=== PATIENT | male | born 1945 | race Caucasian/White ===

== ENCOUNTER 2018-02-19 07:01 | Outpatient (CLI) | payer OTHER ==
[2018-02-19] MEDS ORDERED: IOPAMIDOL-300 50 ML VIAL ONE (07:51)
[2018-02-19] MEDS ORDERED: IOPAMIDOL-300 100 ML VIAL ONE (07:51)
[2018-02-19] MEDS ORDERED: IOPAMIDOL-300 100 ML VIAL IVP ONE (09:09)
[2018-02-19] MEDS ORDERED: IOPAMIDOL-300 50 ML VIAL PO ONE (09:09)
--- NOTE | 2018-02-19 17:59 | CT Report ---
Reason: ABNORMAL XRAY FINDING ON PELVIS Procedure Date: 02/19/2018 Accession Number: [id number] / [id number] Procedure: CT - Abdomen/Pelvis W/ CPT Code: FULL RESULT: EXAM: CT ABDOMEN AND PELVIS EXAM DATE: 02/19/2018 09:06 AM. CLINICAL HISTORY: ABNORMAL XRAY FINDING ON PELVIS. COMPARISONS: The lumbar spine radiograph identified as the study leading to this examination is not available for comparison or review. TECHNIQUE: Routine helical CT imaging was performed through the abdomen and pelvis. IV contrast: 100 mL of Isovue-300. Enteric contrast: Yes. Reconstructions: Coronal and sagittal. In accordance with CT protocol optimization, one or more of the following dose reduction techniques were utilized for this exam: automated exposure control, adjustment of mA and/or KV based on patient size, or use of iterative reconstructive technique. FINDINGS: Lung Bases: Unremarkable. Liver: Normal. No masses. Gallbladder/Bile Ducts: Unremarkable. Spleen: Normal. Pancreas: Normal. Adrenal Glands: Fat-containing left adrenal nodule is consistent with an adrenal adenoma, benign. Mild nodular thickening of the right adrenal gland likely represents the same though no definitely measurable macroscopic fat is identified. Kidneys: There are bilateral renal hypodensities which are too small to characterize as well as left renal cysts. No masses or hydronephrosis. Peritoneal Cavity/Bowel: Diverticulosis, pancolonic without evidence of diverticulitis. No free fluid, free air or adenopathy. No masses or acute inflammatory process. Pelvic Organs: Normal. The bladder and visualized pelvic organs are within normal limits. Vasculature: No aneurysms or other significant abnormality. Bones: The right iliac vein contains a partially lytic partially expansile mass without definite cortical breakthrough. Other: Postsurgical changes and absence of prostate in the pelvis suggest the possibility of previous prostate cancer. IMPRESSION: Expansile mixed lytic and sclerotic right iliac wing lesion. Please correlate the right iliac lesion to the patient's possible history of prostate cancer and any potential previous history of osseous metastasis and their treatment. This would guide further imaging such as a bone scan or MRI and the need for biopsy. If further history and prior imaging could be made available to the radiologist, an addendum could be issued with a more targeted interpretation. [facility]
== END 2018-02-19 07:02 | disposition home or self-care (01) ==
LOC: DI 07:01
PROVIDERS: ATTEND Emergency Medicine Emergency Medical Services
DX: M89.9 Disorder of bone, unspecified (principal)
CPT/HCPCS: 74177; Q9967

== ENCOUNTER 2018-03-27 09:15 | Outpatient (CLI) | payer OTHER ==
[2018-03-27] MEDS ORDERED: GADOBUTROL 10 MMOL/10 ML VIAL ONE (10:26)
[2018-03-27] MEDS ORDERED: GADOBUTROL 10 MMOL/10 ML VIAL IVP ONE (10:59)
--- NOTE | 2018-03-29 13:31 | MRI Report ---
Reason: CT ABN ON LEFT HIP WING Procedure Date: 03/27/2018 Accession Number: [id number] / [id number] Procedure: MRI - Pelvis W/WO CPT Code: FULL RESULT: EXAM: MRI PELVIS WITHOUT AND WITH CONTRAST EXAM DATE: 03/27/2018 11:39 AM. CLINICAL HISTORY: CT ABN ON LEFT HIP WING. COMPARISON: ABDOMEN/PELVIS W/ 02/19/2018 8:56 AM. TECHNIQUE: Multiplanar, multisequence T1-weighted and fluid-sensitive sequences of the pelvis before and after administration of intravenous contrast. IV contrast: 10 mL of Gadavist. Other: None. FINDINGS: Bones: The right ilium is expanded, with thickening of the cortex and widening of the medullary cavity. There is mixed T1 and T2 signal visible throughout the right ilium particularly in the posterior process and iliac wing. The abnormality corresponds with that visible on the recent CT. There is a low T1, low T2 signal line through the right sacral ala parallel to the right sacroiliac joint. There is surrounding marrow edema. The findings may indicate an insufficiency or stress fracture. The differential diagnosis could include osteoarthritis. There is moderate degenerative change of the right sacroiliac joint. Lower Lumbar Spine: Mild degenerative change of the lower lumbar spine at L4-L5. Sacroiliac Joints: No effusion or sacroiliitis. Right Hip: Mild right hip osteoarthritis. Left Hip: Mild left hip osteoarthritis. Symphysis Pubis: Unremarkable. Musculature: No edema or fatty atrophy. Pelvic Cavity: Numerous colonic diverticula. The soft tissues of the abdomen and pelvis appear unremarkable. Other: The visualized sciatic nerves are unremarkable. No bursitis. The subcutaneous tissues are unremarkable. No abscess or cellulitis. IMPRESSION: 1. 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 2. Moderate degenerative change of the right sacroiliac joint. Possible stress or insufficiency fracture through the right sacral ala. Differential diagnosis includes degenerative change. 3. Mild bilateral hip osteoarthritis. [facility] MUSCULOSKELETAL RADIOLOGY SECTION
== END 2018-03-27 09:16 | disposition home or self-care (01) ==
LOC: DI 09:15
PROVIDERS: ATTEND Emergency Medicine Emergency Medical Services
DX: M16.0 Bilateral primary osteoarthritis of hip (principal); M47.818 Spondylosis without myelopathy or radiculopathy, sacral and sacrococcygeal region
CPT/HCPCS: 72197; A9585

== ENCOUNTER 2018-07-24 09:49 | Outpatient (CLI) | payer OTHER ==
[2018-07-24] MEDS ORDERED: IOVERSOL 320 100 ML VIAL IVP ONE ×2 (10:01→10:27)
--- NOTE | 2018-07-25 23:20 | CT Report ---
Reason: HEMOPTYSIS Procedure Date: 07/24/2018 Accession Number: [id number] / [id number] Procedure: CT - CHEST W CPT Code: FULL RESULT: EXAM: CT CHEST EXAM DATE: 07/24/2018 10:29 AM. CLINICAL HISTORY: Hemoptysis. COMPARISONS: ABDOMEN/PELVIS W/ 02/19/2018 8:56 AM. TECHNIQUE: Routine helical CT imaging was performed through the chest. IV contrast: None. Reconstructions: Coronal and sagittal. In accordance with CT protocol optimization, one or more of the following dose reduction techniques were utilized for this exam: automated exposure control, adjustment of mA and/or KV based on patient size, or use of iterative reconstructive technique. FINDINGS: Lungs and Pleura: There is subsegmental atelectasis noted within the left lung base region. No suspicious lung consolidation is noted. There is no significant airspace filling noted secondary to the reported hemoptysis. There is a small subpleural nodular density within the anterior portion of the right middle lobe, similar to the prior study (image 31 series 4). This measures 5.5 mm (image 31 series 4). Minimal linear right middle lobe as well as right lower lobe atelectatic changes are noted. Small pleural and parenchymal scarring noted within the left apex. Central Airways: Visualized central airways are without suspicious filling defects. Chest Wall: No significant abnormality. Thyroid: No significant abnormality. Mediastinum: No significant abnormality. Heart: Normal in size. No significant pericardial effusion. Aorta: Normal caliber. Upper Abdomen: As was seen on the prior CT of the abdomen, there is a nodule within the left adrenal measuring 1.5 x 1.8 x 2.2 cm (image 58 series 4). This contains macroscopic internal fat, most consistent with an adrenal myelolipoma. There is a small focal area of scarring within the upper portion of the left kidney (image 67 series 4). Contracted gallbladder. Possible internal gallstones and/or sludge, difficult to be certain on this exam. There are a couple of enlarged lymph nodes within the small bowel mesentery in the left upper quadrant, similar to the prior study. These are nonspecific. Bones: No suspicious bony lesions evident. Multiple old healed left-sided rib fractures are noted. There is moderate multilevel degenerative change within the spine. IMPRESSION: 1. No suspicious pulmonary consolidation. No suspicious pulmonary opacity related to clinically noted hemoptysis. 2. Indeterminate small nodular focus within the subpleural portion of the right middle lobe measuring 5.5 mm. This is indistinct in appearance. It may represent an area of scarring. Follow-up lung nodule as per the recommendation guidelines below. 3. Incidentally noted left adrenal myelolipoma measuring 1.5 x 1.8 x 2.2 cm. 4. Left hemidiaphragm eventration versus elevation again seen. 5. There are a couple of enlarged mesenteric lymph nodes within the left upper quadrant bowel mesentery, similar to the prior study. While this may represent a sequela of idiopathic mesenteritis, occasionally early lymphoma difficult to exclude with certainty. As such, follow-up examination recommended with a contrast-enhanced CT of the abdomen and pelvis at 6 months. Recommend follow-up of the described nodule(s) according to the following guidelines: Fleischner Society Recommendations 2017 MacMahon et al. Radiology 2017 Subsolid nodules: <6 mm (single, GG or part solid)- F/U CT at 3-6 months. If stable, consider CT at 2 and 4 years [facility]
== END 2018-07-24 09:50 | disposition home or self-care (01) ==
LOC: DI 09:49
PROVIDERS: ATTEND Emergency Medicine Emergency Medical Services
DX: R04.2 Hemoptysis (principal); R91.1 Solitary pulmonary nodule; D17.5 Benign lipomatous neoplasm of intra-abdominal organs; R59.0 Localized enlarged lymph nodes
CPT/HCPCS: 71260; Q9967

== ENCOUNTER 2018-10-30 09:16 | Outpatient (CLI) | payer OTHER ==
[2018-10-30] MEDS ORDERED: IOVERSOL 320 100 ML VIAL IVP ONE ×2 (09:44→10:44)
--- NOTE | 2018-10-30 16:30 | CT Report ---
Reason: SOLITARY PULMONARY NODULE Procedure Date: 10/30/2018 Accession Number: [id number] / [id number] Procedure: CT - CHEST W CPT Code: FULL RESULT: EXAM: CT CHEST EXAM DATE: 10/30/2018 10:43 AM. CLINICAL HISTORY: Solitary pulmonary nodule COMPARISONS: CHEST W/ 07/24/2018 10:20 AM RIBS W/PA CHEST LT 04/30/2018 8:16 PM ABDOMEN/PELVIS W/ 02/19/2018 8:56 AM. TECHNIQUE: Routine helical CT imaging was performed through the chest. IV contrast: 80 mL Optiray 320. Reconstructions: Coronal and sagittal. In accordance with CT protocol optimization, one or more of the following dose reduction techniques were utilized for this exam: automated exposure control, adjustment of mA and/or KV based on patient size, or use of iterative reconstructive technique. FINDINGS: Thyroid Gland: Normal as visualized. Lungs/Pleura: Heterogeneous parenchymal attenuation in the apices, suspect representing areas of air trapping due to small airways disease. The left hemidiaphragm is elevated, as before. Stable 6 mm subpleural nodule in the superior segment of the left lower lobe (4/22). Unchanged 15 x 8 mm oval-shaped nodular opacity along the oblique fissure, previously 14 x 8 mm, likely a fissural node. Two subtle subcentimeter areas of nodular subpleural opacity in the medial right middle lobe (4/31) and anterior right middle lobe (4/32) appear to represent linear scars on correlation with the sagittal images. No new pulmonary nodule. No focal infiltrate or pleural effusion. Mediastinum: Heart size is normal. No pericardial effusion. The aorta and visualized central pulmonary arteries are unremarkable. No adenopathy. Bones: Healing fractures deformities of the left lateral fourth and fifth and posterior fourth through seventh ribs. Lower thoracic spine DISH. No acute bony abnormality. Visualized Abdomen: Mild diffuse low attenuation of the hepatic parenchyma relative to the spleen, indicating steatosis. Colonic diverticulosis without focal wall thickening or adjacent mesenteric fat stranding to suggest acute diverticulitis. Bilateral low-attenuation adrenal nodules measuring 1.6 x 0.9 cm on the left (3/59) and 1.3 x 1.2 cm on the right (3/57) have not significantly changed in size or appearance compared to prior CT chest 07/24/[address] abdomen/pelvis 02/19/2018. The left nodule contains a small focus of macroscopic fat. 1.2 cm exophytic cyst arising from the medial upper pole of the left kidney (3/64). 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 Other: None. IMPRESSION: 1. Stable 6 mm subpleural nodule in the superior segment of the left lower lobe and probable fissural node along the oblique fissure. For 2017 [place] Society guidelines, recommend additional follow-up CT at 18-24 months to ensure stability. No new pulmonary nodule. 2. Previously described tiny subpleural opacities in the right middle lobe appear to represent scarring. 3. Unchanged small bilateral adrenal nodules, the left nodule containing a focus of macroscopic fat in keeping with a myelolipoma. Consider 12 month follow-up adrenal protocol in January 2019 per ACR white paper. [facility]
== END 2018-10-30 09:17 | disposition home or self-care (01) ==
LOC: LAB 09:16
PROVIDERS: ATTEND Emergency Medicine Emergency Medical Services
DX: R91.1 Solitary pulmonary nodule (principal); R91.8 Other nonspecific abnormal finding of lung field; E27.9 Disorder of adrenal gland, unspecified
CPT/HCPCS: 71260; 82565; Q9967

== ENCOUNTER 2019-08-23 08:00 | Outpatient (CLI) | payer OTHER | END 2019-08-23 23:59 | disposition home or self-care (01) | LOC: COV 08:00 | PROVIDERS: ATTEND Family Medicine | DX: R05 Cough (principal); R50.9 Fever, unspecified | CPT/HCPCS: 81599 ==

== ENCOUNTER 2020-01-27 06:22 | Day surgery (SDC) | payer OTHER ==
[2020-01-27] MEDS ORDERED: MIDAZOLAM 2 MG/2 ML VIAL IVP ONE (06:23)
[2020-01-27] MEDS ORDERED: PROPOFOL 200 MG/20 ML VIAL IVP ONE (06:23)
[2020-01-27] MEDS ORDERED: LACTATED RINGERS 1,000 ML IV ONE ×2 (07:05→09:07)
--- NOTE | 2020-01-27 07:30 | ANESTHESIA ---
Pre-Anesthesia VS, & Labs - Diagnosis polyps - Procedure colonoscopy Vital Signs: Temp Pulse Resp BP Pulse Ox 36.2 C L 82 18 141/91 H 96 01/27/20 06:34 01/27/20 06:34 01/27/20 06:34 01/27/20 06:34 01/27/20 06:34 Height 6 ft 1 in Weight (kg) 122.8 kg Body Mass Index 35.1 - NPO >8 hours - Lab Results Current Lab Results: Laboratory Tests 01/27/20 07:04: POC Whole Bld Glucose 144 H Home Medications and Allergies Amitriptyline HCl 04/30/18 Aspirin Chewable [[facility] [place] Aspirin] 04/30/18 Cholecalciferol (Vitamin D3) [Vitamin D3] 04/30/18 Cyclobenzaprine [Flexeril] 04/30/18 Gabapentin 04/30/18 Glipizide 04/30/18 Metformin HCl 04/30/18 Metoprolol Tartrate 04/30/18 Omeprazole 04/30/18 Psyllium Husk [Metamucil] 04/30/18 Simvastatin 04/30/18 amLODIPine [Norvasc] 04/30/18 cloNIDine [Catapres] 04/30/18 hydroCHLOROthiazide [Hydrochlorothiazide] 04/30/18 lisinopriL [Lisinopril] 04/30/18 Allergies/Adverse Reactions: Allergies Allergy/AdvReac Type Severity Reaction Status Date / Time morphine AdvReac Hallucinati Verified 04/30/18 19:34 ons tapes Allergy Rash Uncoded 01/27/20 07:19 Anes History & Medical History - Anesthetic History Anesthesia Complications: reports: No previous complications - Medical History Cardiovascular: reports: Hypertension, High cholesterol Pulmonary: reports: Other Gastrointestinal: reports: GERD, Colon polyps Urinary: reports: Benign prostate hypertrophy Musculoskeletal: reports: Osteoarthritis, Chronic back pain Endocrine/Autoimmune: reports: Type 2 diabetes, Other (obese) Skin: reports: None Smoking Status: Never smoker - Surgical History General: Colonoscopy Urologic: Prostatic surgery Orthopedic: Spine surgery, Other Exam General: Alert Dental: WNL Mouth Opening: Greater than 4 Fingerbreadths Neck Mobility: Normal Mallampati classification: II Thyromental Distance: greater than 6 cm Respiratory: Lungs clear Cardiovascular: Regular rate Plan Anesthesia Type: MAC, Total IV Consent for Procedure(s) Verified and Reviewed: Yes Code Status: Attempt Resuscitation ASA classification: 3-Severe systemic disease Is this case an emergency?: Yes
[2020-01-27 09:22] VITALS: BP 125/87
== END 2020-01-27 06:23 | disposition home or self-care (01) ==
LOC: SDS 06:22
PROVIDERS: ATTEND Surgery
DX: Z12.11 Encounter for screening for malignant neoplasm of colon (principal); Z86.010 Personal history of colon polyps; K57.30 Diverticulosis of large intestine without perforation or abscess without bleeding; E11.9 Type 2 diabetes mellitus without complications; I10 Essential (primary) hypertension; M88.9 Osteitis deformans of unspecified bone; E78.00 Pure hypercholesterolemia, unspecified; K21.9 Gastro-esophageal reflux disease without esophagitis; E66.9 Obesity, unspecified; Z68.35 Body mass index [BMI] 35.0-35.9, adult; Z98.1 Arthrodesis status; Z79.84 Long term (current) use of oral hypoglycemic drugs; Z79.82 Long term (current) use of aspirin
CPT/HCPCS: G0105; J7120

== ENCOUNTER 2020-03-09 11:36 | Outpatient (CLI) | payer OTHER ==
[2020-03-09] MEDS ORDERED: IOVERSOL 320 100 ML VIAL IVP ONE ×2 (11:52→12:08)
--- NOTE | 2020-03-09 15:17 | CT Report ---
PROCEDURE: ABDOMEN/PELVIS W/WO INDICATIONS: ADRENAL MASS CONTRAST: IV CONTRAST: Optiray 320 ml: 100 PO CONTRAST: *NO PO CONTRAST TECHNIQUE: After the administration of intravenous contrast, 5 mm thick sections acquired from the diaphragms to the symphysis. 5 mm thick coronal and sagittal reformats were acquired. For radiation dose reducti on, the following was used: automated exposure control, adjustment of mA and/or kV according to sarah ent size. COMPARISON: None. FINDINGS: Image quality: Excellent. Lung bases: Lung bases are clear. Heart size is normal. Adrenal glands: Approximately 1.2 cm nodule in the medial limb of the right adrenal gland is unchange d from 02/11/2018 exam. This has an average attenuation of -9 on the precontrast images and does not d emonstrate suspicious enhancement pattern. Adrenal glands are otherwise normal. Kidneys: Simple cysts in the left kidney. No evidence of solid renal mass. No urinary tract calculus or hydronephrosis. Normal course and caliber of the ureters. Other solid organs: Liver and spleen are normal in size and enhancement. Gallbladder is normal. Francesco iary system is non dilated. Pancreas enhances normally. Peritoneum and bowel: Diverticulosis without findings of diverticulitis. Normal appendix. Bowel loops demonstrate normal wall thickness and caliber. No free fluid or air. Nodes and vessels: No retroperitoneal or mesenteric adenopathy by size criteria. Aorta and inferior vena cava are normal in size. Abdominal wall: No ventral hernias. Pelvis: Postsurgical changes of prostatectomy with bilateral pelvic sidewall lymph node dissection. N o suspicious soft tissue density in the pelvis or evidence of pelvic lymphadenopathy. Bones: Mixed lytic and sclerotic attenuation throughout the right iliac bone and right sacral alar is unchanged from the prior study, etiology nonspecific. This presumably represents an element of radia tion necrosis, potentially due to treatment of prior bone metastases or simply a sequela of pelvic ra diation. Visualized osseous structures otherwise demonstrate no suspicious sclerotic lesion or blasti c lesion. IMPRESSION: Benign right adrenal adenoma. Post surgical changes of prostatectomy with no evidence of local recurrence. Nonspecific mixed lytic and sclerotic changes in the right iliac bone and sacral ala are unchanged fr om the prior study. See discussion above. Reviewed by: Oren Amor MD on 03/09/2020 3:14 PM PDT Approved by: Oren Amor MD on 03/09/2020 3:14 PM PDT Station ID: [id number]
== END 2020-03-09 11:37 | disposition home or self-care (01) ==
LOC: DI 11:36
DX: D35.01 Benign neoplasm of right adrenal gland (principal)
CPT/HCPCS: 74178; Q9967

== ENCOUNTER 2021-11-13 10:29 | Outpatient (CLI) | payer OTHER ==
--- NOTE | 2021-11-13 16:24 | Ultrasound Report ---
PROCEDURE: Abdomen Complete, Ultrasound INDICATIONS: Abnormal labs, right upper quadrant pain x3 weeks TECHNIQUE: Real-time scanning was performed of the abdominal and retroperitoneal organs, with image documentatio n. COMPARISON: CT abdomen pelvis 03/09/2020 FINDINGS: Liver: Liver shows diffusely decreased attenuation without focal mass lesion. Gallbladder: Sonolucent gallbladder without color wall thickening or pericholecystic fluid Biliary ducts: Intrahepatic bile ducts are non-dilated. Extrahepatic bile duct caliber measures 5.0 mm. Normal is 6-7 mm or less in diameter, or 10 mm or less post-cholecystectomy. Pancreas: Visualized portions of the pancreas are sonographically normal. Spleen: Spleen is normal in size and homogeneous in echotexture. Kidneys: Kidneys are normal in size and echotexture. Right kidney measures 13.5 cm long; left kidne y measures 12.5 cm long. No hydronephrosis or nephrolithiasis. No solid masses. There is a right s uprarenal nodule measuring 1.3 x 1.2 cm, similar prior exam. Left renal simple cysts measure up to 3 cm. Aorta: Visualized aorta is normal in caliber at less than 3 cm. Iliacs: Proximal common iliac arteries are normal in caliber at less than 2.5 cm. IVC: Intrahepatic inferior vena cava is patent. Miscellaneous: No free abdominal fluid. IMPRESSION: 1. Hepatic fatty infiltration without focal mass lesion 2. Possible right adrenal adenoma 3. Renal cortical cysts Reviewed by: Dave Grigsby MD on 11/13/2021 3:23 PM AKDT Approved by: Dave Grigsby MD on 11/13/2021 3:23 PM AKDT Station ID: [id number]
== END 2021-11-13 10:30 | disposition home or self-care (01) ==
LOC: DI 10:29
PROVIDERS: ATTEND Nurse Practitioner Family
DX: R78.9 Finding of unspecified substance, not normally found in blood (principal); R10.11 Right upper quadrant pain; K76.0 Fatty (change of) liver, not elsewhere classified; N28.1 Cyst of kidney, acquired